=== PATIENT | female | born 1995 | race Hispanic/Latino ===

== ENCOUNTER 2019-04-03 11:38 | Inpatient (IN) | payer MEDICAID ==
--- NOTE | 2019-04-03 17:12 | Ultrasound Report ---
ULTRASOUND OBSTETRIC Indication: Initial scan at this facility for this , 40 weeks Findings: There is a single intrauterine . BPD = 10.25 cm = greater than 42 weeks Head circumference = 35.98 cm = greater than 42 weeks Abdominal circumference = 40.94 cm = greater than 42 weeks Femur length = 8.93 cm = greater than 42 weeks Overall estimated sonographic age = greater than 42 weeks heart rate is 165 beats per minute. Estimated weight is 5301 g grams +/- 785 g. Because of the advanced calculated gestation al age this may be an underestimation of the weight position is cephalic. Amniotic fluid volume appears normal. Amniotic fluid index is 22.4 Maternal adnexa appear normal. Impression: 1. Single living intrauterine with estimated sonographic age greater than 42 weeks 2. No sonographic abnormality identified. Biophysical profile INDICATION: 40 weeks . First scan at this facility for this COMPARISON: None FINDINGS: breathing movement: 2/2 movement: 2/2 posture and tone: 2/2 Qualitative amniotic fluid volume: 2/2 IMPRESSION: Total score for biophysical profile is 8/8 heart rate is 174 bpm Signer Name: Carlos Plascencia MD Signed: 04/03/2019 5:07 PM Workstation Name: [id number]
[2019-04-03] MEDS ORDERED: BICITRA ORAL LIQD 30ML PO ONE (18:04)
[2019-04-03] MEDS ORDERED: FAMOTIDINE 20 MG/2 ML INJ IV ONE (18:04)
[2019-04-03] MEDS ORDERED: METOCLOPRAMIDE 10 MG/2 ML INJ IV ONE (18:04)
[2019-04-03] MEDS ORDERED: LACTATED RINGERS 1,000 ML IV SCH (18:10)
[2019-04-03] MEDS ORDERED: OXYTOCIN 20 UNIT/1000ML DRIP 20 UNITS/1,000 ML BAG IV SCH ×3 (18:10→22:55)
[2019-04-03] MEDS ORDERED: LIDOCAINE (2%) 20 MG/1 ML VIAL 20 ML MDV INFILTRATI ONE (18:10)
[2019-04-03] MEDS ORDERED: ePHEDrine SULFATE 50 MG/1 ML INJ IV PRN (18:10)
[2019-04-03] MEDS ORDERED: PROMETHAZINE 25 MG TAB PO PRN ×2 (18:10→19:31)
[2019-04-03] MEDS ORDERED: MINERAL OIL 30 ML ORAL LIQD PO PRN (18:10)
[2019-04-03] MEDS ORDERED: TERBUTALINE 1 MG/1 ML INJ IVP PRN (18:10)
[2019-04-03] MEDS ORDERED: TERBUTALINE 1 MG/1 ML INJ SUB-Q PRN (18:10)
[2019-04-03 18:46] LABS: Hematocrit 33.9 % (30.3-42.9); Hemoglobin 11.3 gm/dl (10.1-14.3); Mean Corpuscular HGB Conc 33 % (30-34); Mean Corpuscular Volume 84 fl (79-97); Red Blood Count 4.02 M/mm3 (3.65-5.03); Red Cell Distribution Width 15.1 % (13.2-15.2)
[2019-04-03 18:54] LABS: Platelet Count 211 K/mm3 (140-440)
--- NOTE | 2019-04-03 19:22 | History and Physical Report ---
History of Present Illness Date of examination: 04/03/19 Date of admission: 04/03/19 16:15 History of present illness: She will present to labor and delivery from our office due to nonreactive NST and office. Patient underwent an ultrasound in triage which revealed estimated weight of >5000 grams Menstrual History Regularity: regular Menses every: 28 days Duration: 6 LMP: 06/23/2018 LMP reliability: definite LMP character: normal test type: urine test Date: 09/06/2018 BC at conception: none Planned ? no EDC Calculations LMP: 03/30/2019 EDC Confirmation: 03/30/2019 Past History : 3 Term Births: 2 Premature Births: 0 Living Children: 2 Para: 2 Mult. Births: 0 Prev : 0 Prev. attempt? 0 Aborta: 0 Elect. Ab: 0 Spont. Ab: 0 Ectopics: 0 # 1 Delivery date: 01/22/2015 Weeks Gestation: 39 Delivery type: Vaginal Anesthesia type: none Delivery location: [facility] Sex: male weight: 6.69 Comments: IOL low fluid # 2 Delivery date: 04/12/2018 Weeks Gestation: 40.1 Delivery type: Anesthesia type: none Delivery location: [facility] Sex: Female weight: 8.04 Comments: precip delivery Risk Factors: Smoked Tobacco Use: Current every day smoker Cigarettes: Yes -- .25 pack(s) per day, Year started: 2012 Smokeless Tobacco Use: Never Counseled to quit/cut down: yes Passive smoke exposure: no Drug use: no HIV high-risk behavior: no Alcohol use: no Exercise: no Seatbelt use: preg-psychotherapist counselor % Dietary Counseling: pn yes Past Medical History: depression 2014- prozac 20 mg daily Past Surgical History: [place] teeth 2012 no complications with anesthesia Past Medical History Surgery (Non-executor of estate): [place] teeth 2012 no complications with anesthesia Abnormal PAP: negative DASHA Exposure: negative Infertility: negative Uterine Anomaly: negative Uterine Surgery (not C/S): negative Other Gynecologic Problems: negative Family Hx: brother- handicap hydrocephalis, scoliosis Social Hx: Patient is single, engaged SAHM Smoking History: Patient is a current smoker. Patient has been counseled to quit. deniesETOH, drugs Infection History Hx of STD: none HIV Risk Eval: no Hepatitis B Risk Eval: low risk Personal hx. of genital herpes: no Partner hx. of genital herpes: no Rash, Viral, or Febrile illness since last LMP? no Varicella/Chicken Pox Status: Previous Disease Genetic History Congenital Heart Defect: Mom: no Dad: no Brenda Disease: Mom: no Dad: no Thalassemia Mom: no Dad: no Neural Tube Defect Mom: no Dad: no Down's Syndrome Mom: no Dad: no Kauhsik-Sachs Mom: no Dad: no Sickle Cell Disease/Trait Mom: no Dad: no Hemophilia Mom: no Dad: no Muscular Dystrophy Mom: no Dad: no Cystic Fibrosis Mom: no Dad: no Luc Chorea Mom: no Dad: no Mental Retardation Mom: no Dad: no Fragile X Mom: no Dad: no Other Genetic/Chromosomal Disorder Mom: no Dad: no Child w/other defect Mom: no Dad: no Comments/Counseling: brother with opitz BBB syndrome Enviromental Exposures Enviromental Exposures Reviewed Xray Exposure: no Medication, drug, or alcohol use since LMP: no Chemical/Other Exposure: no Exposure to Cat Liter: no Hx of Parvovirus (Fifth Disease): no Occupational Exposure to Children: none Current Allergies (reviewed today): No known allergies Past History Past Medical History: other (see HPI) Past Surgical History: other (see HPI) 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) Family/Genetic History: other (see HPI) Social history: full code, other (see HPI) - Obstetrical History : 3 Para: 2 Hx # Term Pregnancies: 2 Number of Pregnancies: 0 Spontaneous Abortions: 0 Induced : 0 Number of Living Children: 2 Medications and Allergies Allergies Allergy/AdvReac Type Severity Reaction Status Date / Time latex AdvReac Intermediate Swelling Verified 03/24/19 17:27 Home Medications Medication Instructions Recorded Confirmed Last Taken Type Pnv with Ca,No.72/Iron/FA 1 tab PO DAILY 12/03/14 04/04/19 04/02/19 History [ Plus Tablet] Lidocain2.5%/Prilocai2.5% [Emla] 5 gm TP PRN #1 tube 01/23/15 04/04/19 03/24/19 Rx Ferrous Sulfate [Feosol 325 MG tab] 325 mg PO BID #60 tablet 04/03/19 Unknown Rx Ibuprofen [Motrin 800 MG tab] 800 mg PO Q6H PRN #30 tablet 04/03/19 Unknown Rx oxyCODONE /ACETAMINOPHEN [Percocet 1 - 2 tab PO Q4H PRN #30 tablet 04/03/19 Unknown Rx 5/325 mg] Active Meds: Active Medications Ephedrine Sulfate (Ephedrine Sulfate) 10 mg IV Q2M PRN PRN Reason: Hypotension Oxytocin/Sodium Chloride (Pitocin/Ns 20 Unit/1000ml Drip) 20 units in 1,000 mls @ 0 mls/hr IV TITR MARCELA Lactated Ringer's (Lactated Ringers) 1,000 mls @ 2,250 mls/hr IV PREOP MARCELA Stop: 04/04/19 19:27 Cefazolin Sodium 3 gm/ Sodium (Chloride) 100 mls @ 100 mls/30 min IV PREOP NR; Protocol Stop: 04/03/19 23:59 Oxytocin/Sodium Chloride (Pitocin/Ns 20 Unit/1000ml Drip) 20 units in 1,000 mls @ 125 mls/hr IV DIRECT MARCELA Lactated Ringer's (Lactated Ringers) 1,000 mls @ 125 mls/hr IV DIRECT MARCELA Mineral Oil (Mineral Oil) 30 ml PO QHS PRN PRN Reason: Constipation Promethazine HCl (Phenergan) 25 mg PO Q6H PRN PRN Reason: Nausea And Vomiting Terbutaline Sulfate (Brethine) 0.25 mg SUB-Q ONCE PRN PRN Reason: Hyperstimulation/Hypertonicity Terbutaline Sulfate (Brethine) 0.25 mg IVP ONCE PRN PRN Reason: Hyperstimulation/Hypertonicity - Vital Signs Vital signs: Vital Signs Pulse BP 106 H 118/58 04/03/19 12:23 04/03/19 12:23 Temp Pulse Resp BP Pulse Ox 98.2 F 106 H 16 120/71 04/03/19 12:42 04/03/19 17:38 04/03/19 12:42 04/03/19 17:38 - Physical Exam Breasts: Positive: deferred Cardiovascular: Regular rate Lungs: Positive: Normal air movement Abdomen: Positive: normal appearance, soft Genitourinary (Female): Positive: normal external genitalia Uterus: Positive: enlarged Extremities: Positive: edema - Obstetrical FHR: category 1 Uterine Contraction Pattern: Absent Results Result Diagrams: 04/04/19 06:00 All other labs normal. Assessment and Plan - Patient Problems (1) Macrosomia affecting management of mother in third trimester Status: Acute Qualifiers: Fetus number: single or unspecified fetus Qualified Code(s): O36.63X0 - Maternal care for excessive growth, third trimester, not applicable or unspecified Plan to address problem: Discussed with the patient on ultrasound of weight of 5300 g. Discussed indication for section. Discussed risks of possible shoulder dystocia and general arrest of labor due to the infant's size. Discussed in the indication for primary section estimated weights of 4500 g greater. All patient's questions were answered. Patient desires the section. Patient informed the risks of the surgery include bleeding possibly bleeding heavy enough to require blood transfusion, infection possible damage to bowel bladder ureter. All questions answered. Patient agrees to proceed (2) Obesity, morbid, BMI 50 or higher Status: Acute (3) Encounter for sterilization Status: Acute Plan to address problem: Patient desires permanent sterilization. She declined temporary contraceptives. She understands the risks of the surgery include bleeding infection possible damage to bowel bladder or ureters. She understands that this surgery would make her permanently sterile. She also understands the approximate 1% failure rate. The patient understands all the above and desires to proceed.
[2019-04-03] MEDS ORDERED: ceFAZolin/Water 2 GM/20 ML 2 GM/20 ML SYRINGE IV ONE (19:26)
[2019-04-03] MEDS: LACTATED RINGERS 1,000 ML IV SCH ×2 (19:30→19:31)
[2019-04-03] MEDS ORDERED: ONDANSETRON 4 MG/2 ML INJ IV PRN (19:31)
[2019-04-03] MEDS ORDERED: PROMETHAZINE 25 MG RECT SUPP PR PRN (19:31)
[2019-04-03] MEDS ORDERED: NALOXONE 0.4 MG/1 ML INJ IV PRN ×2 (19:31→22:55)
[2019-04-03] MEDS ORDERED: HYDROmorphone 1 MG/1 ML INJ IV PRN ×2 (19:31)
--- NOTE | 2019-04-03 19:31 | Anesthesia Day of Surgery ---
Anesthesia Day of Surgery - Day of Surgery Patient Examined: Yes Patient H&P Reviewed: Yes Patient is NPO: Yes
--- NOTE | 2019-04-03 19:31 | Anesthesia Consultation ---
Anesthesia Consult and Med Hx Date of service: 04/03/19 - Airway Anesthetic Teeth Evaluation: Good ROM Head & Neck: Adequate Mental/Hyoid Distance: Adequate Mallampati Class: Class II Intubation Access Assessment: Good - Pulmonary Exam CTA: Yes - Cardiac Exam Cardiac Exam: RRR - Pre-Operative Health Status ASA Pre-Surgery Classification: ASA2 Proposed Anesthetic Plan: Spinal - Pulmonary Hx Asthma: No COPD: No Hx Pneumonia: No - Cardiovascular System Hx Hypertension: No - Central Nervous System Hx Seizures: No Hx Psychiatric Problems: No - Endocrine Hx Renal Disease: No Hx End Stage Renal Disease: No Hx Hypothyroidism: No Hx Hyperthyroidism: No - Hematic Hx Anemia: No Hx Sickle Cell Disease: No - Other Systems Hx Alcohol Use: No Hx Obesity: Yes
[2019-04-03] MEDS ORDERED: WATER FOR IRRIG STERILE 1,500 ML BOTTLE IR ONE (19:50)
[2019-04-03] MEDS ORDERED: SODIUM CHLORIDE 0.9% IRR 1,500 ML BOTTLE IR ONE (19:50)
[2019-04-03] MEDS ORDERED: DEXMEDETOMIDINE 200 MCG/2 ML VIAL IV ONE (19:58)
[2019-04-03] MEDS ORDERED: PHENYLEPHRINE 10 MG/1 ML INJ SDV ONE (19:58)
[2019-04-03] MEDS ORDERED: ONDANSETRON 4 MG/2 ML INJ ONE (19:58)
[2019-04-03] MEDS ORDERED: fentaNYL-BUPIV 2 MCG/ML-0.125% 200 MCG/100 ML BAG EPIDURAL SCH (20:00)
[2019-04-03] MEDS ORDERED: KETOROLAC 30 MG/1 ML INJ ONE (20:22)
--- NOTE | 2019-04-03 21:07 | Post Anesthesia Evaluation ---
- Post Anesthesia Evaluation Patient Participated: Yes Airway Patent: Yes Stable Respiratory Function: Yes Nausea/Vomiting: No Temp > 96.8F: Yes Pain Manageable: Yes Adequeate Hydration: Yes Anesthesia Complications: No Block Receding Appropriately: Yes Patient on Ventilator: No
--- NOTE | 2019-04-03 21:16 | Operative Report ---
Operative Report Operative Report: Date of procedure: 04/03/2019 Pre-operative diagnosis: Intrauterine at 40 weeks with macrosomia with an estimated weight of 5100 g. Desires permanent sterilization Post-operative diagnosis: Same Procedure name(s): Primary low transverse section with bilateral distal salpingectomy Surgeon: Solomon Casanova MD Messenger Copy: Anesthesia: Spinal EBL: 600 mL Complications: None Findings: Patient with normal uterus tubes and ovaries bilaterally. Female infant weight 9 lbs. 11 oz. Apgars 8 at 1 minute and 9 at 5 minutes Specimen(s): Right and left fallopian tubes Procedure: The patient was brought to the operating room. A spinal was placed without any complications. She was then placed in left lateral tilt. Prepped and draped in the usual sterile manner. After testing for adequate anesthesia level, a Pfannenstiel incision was made through her previous scar. This incision was taken down to the fascia. The fascia was then nicked in the midline. This incision was extended out laterally with Sandhu scissors. The fascia was then sharply and bluntly from the underlying rectus muscles. The rectus muscles were bluntly and sharply . The peritoneum was then entered with the drum dyeing machine operator's fingers. This incision was spread vertically with care not to damage the bladder below. The Yves self-retaining tractor was then placed without any difficulty. The bladder flap was then formed sharply and bluntly with Metzenbaum scissors. A transverse incision was made in lower uterine segment. This incision was extended laterally with the operators fingers. The amniotic sac was then entered bluntly with the drum dyeing machine operator's fingers. The infant was delivered from the vertex position. Bulb suction on the mother's abdomen. Cord was double clamped and cut. The infant was then passed to the nursery personnel who were in attendance. The above Apg ar scores were given by the nursery personnel. The placenta was then bluntly removed. The uterus was then externalized and wiped clean the remaining products. The uterine incision was closed in layers. The first incision was closed in a locking manner using 0 Vicryl. This was followed by imbricating stitch also with 0 Vicryl. Attention was then switched to the patient's fallopian tubes. Each fallopian tube was identified by its fimbriated end. Starting on the patient's right side. A portion of each tube was grabbed with the Daryl clamp approximately 2-3 cm from the cornua. A second [place] grasp the distal in the fallopian tube the tube was raised the medially and was transferred dissected with the Bovie. The mesosalpinx was cauterized and cut immediately under the fallopian tube until the distal end was reached and the tube was detached. The remaining mesosalpinx and ovary were inspected and found to be hemostatic. Attention was then switched to the patient's left fallopian tube where the same seizure was performed with good hemostasis. Attention was then switched back to the uterine closure. This closure was hemostatic. The bladder flap was copiously irrigated and found to be hemostatic. The pelvis was copiously irrigated and found to be hemostatic. The uterus was then placed back to the patient's abdomen. The retractors were removed. The rectus muscles were inspected and found to be hemostatic. The fascia was then closed in a running manner using 0 Vicryl. This incision was hemostatic irrigation Bovie. The skin was reapproximated with 4-0 Vicryl subcuticularly. The patient tolerated procedure well. Her urine was clear. The infant was admitted to the well baby nursery. The patient was accompanied to recovery room in good condition. Instrument count correct 3.
--- NOTE | 2019-04-03 21:19 | Procedure Note ---
OB Delivery Note - Delivery Date of Delivery: 04/03/19 Surgeon: HIRA GARCIA Estimated blood loss: 1000cc - Section Preop diagnosis: desires sterilization, other ( macrosomia) Postop diagnosis: same section procedure: section, primary low transverse, bilateral tubal ligation Disposition: PACU Complications: none - A at 1 minute: 8 at 5 minutes: 9 Infant Gender: Female (9lbs 11oz)
[2019-04-03] MEDS ORDERED: LANOLIN/ZINC/DIMETHICONE (LANSINOH) 7 GM TP PRN (22:55)
[2019-04-03] MEDS ORDERED: WITCH HAZEL/ GLYCERIN PAD TP PRN (22:55)
[2019-04-03] MEDS ORDERED: MAGNESIUM HYDROXIDE (MOM) ORAL LIQD UDC PO PRN (22:55)
[2019-04-03] MEDS ORDERED: SIMETHICONE 80 MG CHEW TAB PO PRN (22:55)
[2019-04-03] MEDS: KETOROLAC 30 MG/1 ML INJ IV SCH (23:32)
[2019-04-04] MEDS: HYDROcodone/ACETAMINOPHEN 5-325 MG TAB PO PRN ×3 (01:40→18:30)
[2019-04-04] MEDS: D5W/LACTATED RINGERS 1,000 ML IV SCH ×2 (01:41→07:58)
[2019-04-04] MEDS: ceFAZolin/NS 1 GM/50 ML 1 GM/50 ML BAG IV SCH ×2 (03:31→10:00)
[2019-04-04] MEDS: KETOROLAC 30 MG/1 ML INJ IV SCH ×2 (05:10→09:57)
[2019-04-04 06:15] LABS: Hematocrit 24.8 % (30.3-42.9); Hemoglobin 8.2 gm/dl (10.1-14.3)
--- NOTE | 2019-04-04 09:12 | Progress Note ---
Assessment and Plan patient doing well, no complaint. incision d&I, lochia scant, fundus firm, VSSAF, H&H 8.2/24.8, asymptomatic anemia d/t acute blood loss. - Patient Problems (1) delivery delivered Current Visit: Yes Status: Acute Plan to address problem: continue postop pathway advance diet and activity as tolerated Shower this afternoon (2) Obesity, morbid, BMI 50 or higher Current Visit: Yes Status: Acute (3) Anemia due to blood loss, acute Current Visit: Yes Status: Acute Plan to address problem: FE supplementation monitor for s/s anemia Subjective - Subjective Date of service: 04/04/19 Principal diagnosis: postop day # 1 s/p primary c/s amd tubal ligation Patient reports: appetite normal, pain well controlled, flatus, no nauseated : doing well, bottle feeding Objective - Vital Signs Latest vital signs: Vital Signs Temp Pulse Resp BP Pulse Ox 04/04/19 05:10 18 04/04/19 05:07 98.3 F 89 18 117/67 96 04/04/19 01:40 18 04/03/19 23:32 18 04/03/19 22:37 97.9 F 77 18 99/51 98 04/03/19 17:38 106 H 120/71 04/03/19 14:52 98 H 135/63 04/03/19 12:42 98.2 F 16 04/03/19 12:35 101 H 119/60 04/03/19 12:24 112 H 112/57 04/03/19 12:23 106 H 118/58 Intake and Output 04/03/19 04/04/19 04/04/19 23:59 07:59 15:59 Intake Total 37.5 1505.417 Output Total 240 Balance 37.5 1265.417 Intake: IV 37.5 785.417 D5lr 1,000 ml @ 125 mls/ 785.417 hr IV DIRECT MARCELA Rx#: [id number] Lactated Ringers 1,000 ml 37.5 @ 2250 mls/hr IV PREOP MARCELA Rx#:[id number] Oral 240 Intake, Free Water 480 Output: Urine 240 Indwelling Catheter 240 Other: Total, Intake Amount 120 Total, Output Amount 140 Estimated Blood Loss 1,000 - Exam Breasts: Present: normal Cardiovascular: Present: Regular rate Lungs: Present: Clear to auscultation, Normal air movement Abdomen: Present: normal appearance, soft Vulva: both: normal Uterus: Present: normal, firm, fundal height below umbilicus Extremities: Present: normal Incision: Present: normal, dry, intact - Labs Labs: Abnormal lab results 04/04/19 Range/Units 06:00 Hgb 8.2 L D (10.1-14.3) gm/dl Hct 24.8 L D (30.3-42.9) %
[2019-04-04] MEDS ORDERED: FERROUS SULFATE 325 MG TAB PO SCH (10:00)
[2019-04-04] MEDS: FERROUS SULFATE 325 MG TAB PO SCH ×2 (12:00→23:29)
[2019-04-04] MEDS: oxyCODONE /ACETAMINOPHEN 5-325MG TAB PO PRN ×2 (14:36→20:10)
[2019-04-04] MEDS ORDERED: TETANUS,DIPH,PERTUSS(ACELL) VACCINE 0.5 ML SYRINGE IM ONE (23:15)
[2019-04-04] MEDS: IBUPROFEN 800 MG TAB PO PRN (23:28)
[2019-04-05] MEDS: oxyCODONE /ACETAMINOPHEN 5-325MG TAB PO PRN ×2 (06:40→14:15)
--- NOTE | 2019-04-05 07:55 | Discharge Summary ---
Providers - Providers Date of Admission: 04/03/19 16:15 Date of discharge: 04/05/19 (Pt desires to go home) Attending physician: HIRA GARCIA 04/03/19 22:55 Consult to Laboratory Machinist [CONS] Routine Reason For Exam: Primary care physician: HIRA GARCIA Hospitalization Reason for admission: section, IUP at term Delivery: Procedure: bilateral tubal ligation, primary low transverse Episiotomy: none Laceration: none Incision: normal, dry, intact Other procedures: none complications: none Discharge diagnosis: IUP at term delivered [place] baby: female Hospital course: Uncomplicated Primary section Pt desires D/C,VSS stable, FF @Umb, resting in bed, H/H 12/31, drop related to blood loss from surgery, asymptomatic, doing well s/p , P: D/C today with instructions, RTO 1 wk Post op care, RX provided at d/c Condition at discharge: Good Disposition: DC-01 TO HOME OR SELFCARE - Discharge Diagnoses (1) delivery delivered Status: Acute Comment: RTO one week Post op care Plan - Discharge Medications Prescriptions: Ferrous Sulfate [Feosol 325 MG tab] 325 mg PO BID #60 tablet Ibuprofen [Motrin 800 MG tab] 800 mg PO Q6H PRN #30 tablet PRN Reason: Pain oxyCODONE /ACETAMINOPHEN [Percocet 5/325 mg] 1 - 2 tab PO Q4H PRN #30 tablet PRN Reason: Pain, Moderate - Provider Discharge Summary Activity: routine, no sex for 6 weeks, no heavy lifting 4 weeks, no strenuous exercise Diet: routine Instructions: routine Additional instructions: [] Smoking cessation referral if applicable(refer to patient education folder for contact #) [] Refer to [facility] Booklet Call your doctor immediately for: * Fever > 100.5 * Heavy vaginal bleeding ( >1 pad per hour) * Severe persistent headache * Shortness of breath * Reddened, hot, painful area to leg or breast * Drainage or odor from incision. * Keep incision clean and dry at all times and follow doctor's instructions regarding bathing/showering - Follow up plan Follow up: HIRA GARCIA MD [Primary Care Provider] - 7 Days (Congradulations! Please call [phone] to schedule a postoperative visit in one week. Take medications as prescribed. Call with concerns. [facility], [address], [address], [place], [address] ) )
[2019-04-05] MEDS: FERROUS SULFATE 325 MG TAB PO SCH (10:41)
[2019-04-05] MEDS: IBUPROFEN 800 MG TAB PO PRN (10:49)
[2019-04-05 19:36] VITALS: BP 119/70
== END 2019-04-05 19:02 | disposition home or self-care (01) | DRG 765 ==
LOC: LD 11:38 → TRG 11:38 → OBSVTOIN 16:15 → LD 16:15 → TRG 16:15 → OB 22:38
PROVIDERS: ADMIT Obstetrics & Gynecology; ATTEND Obstetrics & Gynecology
PROC: 10D00Z1 Extraction of Products of Conception, Low, Open Approach (ICD-10-PCS; principal; 2019-04-03)
PROC: 0UL70ZZ Occlusion of Bilateral Fallopian Tubes, Open Approach (ICD-10-PCS; 2019-04-03)
PROC: 3E0234Z Introduction of Serum, Toxoid and Vaccine into Muscle, Percutaneous Approach (ICD-10-PCS; 2019-04-04)
DX: O36.63X0 Maternal care for excessive fetal growth, third trimester, not applicable or unspecified (principal); D62 Acute posthemorrhagic anemia; O99.214 Obesity complicating childbirth; E66.01 Morbid (severe) obesity due to excess calories; O90.81 Anemia of the puerperium; O99.334 Smoking (tobacco) complicating childbirth; F17.210 Nicotine dependence, cigarettes, uncomplicated; Z91.040 Latex allergy status; Z79.899 Other long term (current) drug therapy; Z30.2 Encounter for sterilization; Z23 Encounter for immunization; Z37.0 Single live birth; Z3A.42 42 weeks gestation of pregnancy
CPT/HCPCS: 36415; 76816; 76819; 85014; 85018; 85027; 86850; 86900; 86901; 88302; 90471; 90715; 96360; 96361; 96365; 96366; G0378; J0690; J1885; J2370; J2405; J2590; J2765; J3490; J7120; J7121